=== PATIENT | male | born 1965 | race Caucasian/White ===

== ENCOUNTER → 2016-09-12 | Outpatient (CLI) | payer OTHER ==
[~2016-09-12] MED LIST: ATOR10TA66; LISI10TA2; OMEP20TA33 PO; PNT40TEC PO; SUCR1TAB23 PO
--- NOTE | 2016-09-12 14:27 | Diagnostic Imaging Report ---
CLINICAL INDICATION: Patient has trouble with back for a while now but picked up boxes today and now having extreme lower right-sided back pain. EXAM: X-ray of the lumbar spine, 3 views. COMPARISON: None. FINDINGS: There is no evidence of acute lumbar spine fracture or dislocation. There is incompletely imaged left curvature of the thoracolumbar spine. There are mildly hypertrophic degenerative spurs throughout the lumbar spine. There is moderate loss of intervertebral disc height at the L4-L5 level and L5-S1 level and mild to moderate loss of intervertebral disc height at the L3-L4 level. Sacroiliac joints and visualized portions sacrum and pelvis are unremarkable. IMPRESSION: There is lumbar spine degenerative disease including loss of intervertebral disc height at the L3-S1 levels. MRI of the lumbar spine would better evaluate for disc herniation. Dictated by: Dictated on workstation # [id number]
--- NOTE | 2016-09-12 15:29 | Diagnostic Imaging Report ---
Three views of the sacrum and coccyx. INDICATION: Low back pain. FINDINGS: There is minimal diastasis and step-off along the alignment between the coccyx and the sacrum which could be related to an age-indeterminate injury. No acute fractures seen. No radiopaque foreign body noted. The SI joints have normal alignment. IMPRESSION: There is minimal diastasis and posterior translation at the sacrococcygeal junction which could be related to an age-indeterminate injury. No fracture seen. Dictated by: Dictated on workstation # [id number]
== END ==
LOC: RAD 11:59
PROVIDERS: ATTEND Nurse Practitioner Family
DX: M54.5 Low back pain (principal)
CPT/HCPCS: 72100; 72220

== ENCOUNTER → 2016-09-17 | Outpatient (CLI) | payer OTHER ==
--- NOTE | 2016-09-17 11:38 | Diagnostic Imaging Report ---
PROCEDURE: MRI lumbar spine. TECHNIQUE: Multiplanar, multisequence MRI of the lumbar spine was performed without contrast. INDICATION: Back pain, right-sided pain There are no previous MRI examinations available for comparison. The plain film examination of the lumbar spine performed on 09/12/16 noted degenerative disc disease including narrowing of the disc space at L3-4, L4-5 and L5-S1. There is no acute abnormality identified. 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 Furthermore, the degenerative disc disease at L3-4, L4-5 and L5-S1 seen on the plain film exam is evident. The discs are narrowed and there is desiccation of the disc at each of these levels. In addition, at the L2-3 level there is a prominent disc protrusion eccentric to the right. The disc indents the right ventral aspect of the thecal sac and narrows the AP diameter to approximately 4.5 MM. There may also be encroachment of the exiting right nerve root at this level as well. There is mild narrowing of the neural foramen on the left at L2-3. There is also a disc bulge centrally at the L1-2 level. The disc indents the ventral aspect of the thecal sac and narrows the AP diameter to 8.8 MM. There is mild narrowing of the neural foramen bilaterally at this level. At the L3-4 level there is trefoil stenosis. The disc bulge centrally narrows the AP diameter to 7.6 mm and there is also mild neuroforaminal narrowing also. At the L4-5 level there is a disc protrusion to the left. The disc compresses the left ventral aspect of the thecal sac and narrows the AP diameter to 7.6 mm. Most likely there is encroachment of exiting left nerve root at this level as well. There is mild narrowing of the neural foramen on the right at this level. At L5-S1 there is a disc bulge eccentric to the left. The disc flattens the left ventral aspect of the thecal sac and narrows the AP diameter to 9.8 MM. There is mild narrowing of the neural foramen bilaterally at this level. There is no abnormal signal arising from the cord or the vertebral bodies to indicate an acute abnormality. There is no sign of a paraspinal mass. IMPRESSION: 1. There is degenerative disc, ligamentous and bony disease throughout the lumbar spine. The degenerative changes are accentuated by the relatively slender size of the thecal sac. The L2-3 levels is most significantly affected as there is a large disc protrusion to the right resulting in spinal stenosis and probable encroachment the exiting right nerve root at this level. 2. There is no acute bony abnormality or cord lesion identified. 3. These results were called to Zunilda Zepeda APRN at Dr. Kelly's office. Dictated by: Dictated on workstation # [id number]
== END ==
LOC: RAD 10:12
PROVIDERS: ATTEND Nurse Practitioner Family
DX: M51.36 Other intervertebral disc degeneration, lumbar region (principal)
CPT/HCPCS: 72148

== ENCOUNTER 2016-12-05 14:54 | Outpatient (RCR) | payer OTHER | END 2016-12-05 15:40 | disposition home or self-care (01) | PROVIDERS: ATTEND Orthopaedic Surgery Orthopaedic Surgery of the Spine | DX: Z47.89 Encounter for other orthopedic aftercare (principal) ==

== ENCOUNTER 2017-01-30 12:46 | Emergency (ER) | payer OTHER, BC ==
[~2017-01-30] VITALS: Ht 185.4 cm; Wt 102.1 kg
[2017-01-30] MEDS ORDERED: ATOR20TA49 PO (13:21)
[2017-01-30] MEDS ORDERED: AZIL80TA (13:21)
[2017-01-30] MEDS ORDERED: HYDR25TA4 (13:21)
--- NOTE | 2017-01-30 13:30 | ED General ---
General Chief Complaint: Laceration Stated Complaint: L POINTER FINGER LAC Nursing Triage Note: ARRIVED VIA POV TO ROOM 04 WITH COMPLAINTS OF LAC LEFT 2ND FINGER. 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 Sepsis Screen: No Definite Risk Source of Information: Patient Exam Limitations: No Limitations History of Present Illness Time Seen by Provider: 13:30 Allergies and Home Medications Allergies Coded Allergies: Penicillins (Unverified Allergy, Mild, 09/16/14) Home Medications Atorvastatin Calcium 20 Mg Tablet, 20 MG PO DAILY, (Reported) Azilsartan Medoxomil 80 Mg Tablet, #90 (Reported) Hydrochlorothiazide 25 Mg Tablet, #90 (Reported) Past Haxbjlt-Yjagrh-Oeuutr Hx Patient Social History Alcohol Use: Occasionally Uses Recreational Drug Use: No 2nd Hand Smoke Exposure: No Recent Foreign Travel: No Contact w/Someone Who Travel: No Recent Infectious Disease Expo: No Immunizations Up To Date Tetanus Booster (TDap): More than 5yrs Surgeries HX Surgeries: Yes Surgeries: Adenoidectomy, Tonsillectomy Respiratory Hx Respiratory Disorders: No Cardiovascular Hx Cardiac Disorders: Yes Cardiac Disorders: High Cholesterol, Hypertension Neurological Hx Neurological Disorders: No Genitourinary Hx Genitourinary Disorders: No Gastrointestinal Hx Gastrointestinal Disorders: Yes Gastrointestinal Disorders: Gastroesophageal Reflux Musculoskeletal Hx Musculoskeletal Disorders: No Endocrine Hx Endocrine Disorders: No Family Medical History Significant Family History: CAD Over 55 Years Old, Diabetes, Hypertension Physical Exam Vital Signs Vital Sign - Last 12Hours 01/30/17 13:14 Temp 98.0 Pulse 71 Resp 16 B/P (MAP) 126/83 Pulse Ox 97 Capillary Refill : Less Than 3 Seconds Laceration Repair : Wound Length (cm): 2 Wound's Depth, Shape: flap Suture: Ethlion Suture Size: 3-0 Number of Sutures: 4 Layer Closure?: 1 Progress/Results/Core Measures Results/Orders My Orders Orders - LAURY SEXTON Pertuss(Acell),Tet Adult (Boostrix (01/30/17 14:16) Lidocaine 2% Injection 20 Ml (Xylocaine (01/30/17 14:16) Bupivacaine 0.5% Injection (Sensorcaine (01/30/17 14:30) Vital Signs/I&O Vital Sign - Last 12Hours 01/30/17 13:14 Temp 98.0 Pulse 71 Resp 16 B/P (MAP) 126/83 Pulse Ox 97 Blood Pressure Mean: 97 Departure Impression Impression: Primary Impression: Finger laceration Disposition: 01 HOME, SELF-CARE Condition: Improved Departure-Patient Inst. Decision time for Depature: 15:35 Referrals: MARIA LUISA NEUMANN MD (PCP/Family) Primary Care Physician Patient Instructions: Laceration Repair With Stitches (DC) Add. Discharge Instructions: All discharge instructions reviewed with patient and/or family. Voiced understanding. Tylenol extra strength [id number] as directed for pain. Ibuprofen 800 mg by mouth every 8 hours as needed for pain. Elevate the left hand on pillows. Ice pack for 20 minute intervals as needed for pain. Tomorrow morning remove the bandage, shower with antibacterial soap, pat dry, apply triple antibiotic ointment twice daily for 3 days and cover with a bandage. The emergency department in 10-12 days for suture removal. Return immediately to the emergency department for worsened pain, redness, drainage, fever, or any other concerns. Follow up with family doctor if needed. LAURY SEXTON Jan 30, 2017 13:30
[2017-01-30] MEDS ORDERED: LIDOCAINE 2% 20 ML (XYLOCAINE) VIAL INJ STA (14:16)
[2017-01-30] MEDS ORDERED: TETANUS,DIPTH,PERTUSS P/F (BOOSTRIX) 0.5 ML VIAL IM STA (14:16)
[2017-01-30] MEDS ORDERED: BUPIVACAINE 0.5% 30 ML (SENSORCAINE) VIAL INJ ONE (14:30)
[2017-01-30 15:45] VITALS: BP 132/98
== END 2017-01-30 15:45 | disposition home or self-care (01) ==
LOC: EDUNIT# 12:46 → ER 12:48
DX: S61.211A Laceration without foreign body of left index finger without damage to nail, initial encounter (principal); I10 Essential (primary) hypertension; W26.0XXA Contact with knife, initial encounter; Y92.511 Restaurant or cafe as the place of occurrence of the external cause
CPT/HCPCS: 12001; 90715

== ENCOUNTER 2017-02-10 15:06 | Emergency (ER) | payer OTHER, BC ==
[~2017-02-10] VITALS: Ht 185.4 cm; Wt 102.1 kg
[~2017-02-10 15:06] MED LIST changes: +ATOR20TA49 PO; +AZIL80TA; +HYDR25TA4
[2017-02-10 15:25] VITALS: BP 119/77
== END 2017-02-10 15:25 | disposition home or self-care (01) ==
LOC: EDUNIT# 15:06 → ER 15:08
DX: S61.211D Laceration without foreign body of left index finger without damage to nail, subsequent encounter (principal); X58.XXXD Exposure to other specified factors, subsequent encounter

== ENCOUNTER → 2017-05-16 | Outpatient (CLI) | payer BC, OTHER ==
--- NOTE | 2017-05-16 10:43 | Diagnostic Imaging Report ---
PROCEDURE: MRI lumbar spine. TECHNIQUE: A multiplanar/multisequence MRI of the lumbar spine was performed without contrast. INDICATION: Back pain with right leg pain. FINDINGS: The alignment of the posterior spinal line is satisfactory. The vertebral body heights are preserved. There is disc desiccation and mild disc height loss at all levels in the lumbar spine. There is a relatively narrow AP dimension of the spinal canal on a congenital basis with the AP dimension of the canal at 9.4 mm at the mid L4 vertebral level. No significant congenital spinal canal stenosis, however. There is no significant marrow signal abnormality. Schmorl's nodes resulting in focal depressions of the upper endplate of the T12 and T11 vertebra are seen. The cauda equina and conus medullaris appear grossly unremarkable. T12-L1: Unremarkable. L1-2: There is a diffuse disc bulge with a superimposed central disc protrusion that has a cranial extension. There is mild facet hypertrophy. No central canal stenosis. The lateral recess demonstrates a mild to moderate stenosis bilaterally. The foramina demonstrate no significant stenosis on either side. L2-3: There is a diffuse disc bulge with an annular tear centrally and minimal cranial extension of the superimposed protrusion. There is mild facet hypertrophy. No central canal stenosis. This level demonstrates significant improvement compared to 09/17/2016 with a limited laminectomy suggested. Mild lateral recess stenosis is seen bilaterally. No significant foraminal stenosis. L3-4: There is a diffuse disc bulge and bilateral mild facet hypertrophy. There is a moderate central canal stenosis reducing the AP dimension of the canal to 7.7 mm and there is bilateral lateral recess stenosis, moderate on the right and mild to moderate on the left. The foramina demonstrate mild stenosis on the right side and minimal stenosis on the left. L4-5: There is a diffuse disc bulge asymmetric to the left side. There is central canal stenosis of a moderate degree reducing the AP dimension of the canal to 7.9 mm with severe stenosis of the left lateral recess compressing the descending left L5 nerve root. There is moderate to severe stenosis of the right lateral recess abutting the descending right L5 nerve root. The foramina demonstrate moderate stenosis on the right side and moderate to severe stenosis on the left. L5-S1: There is a left paracentral disc herniation with prominent posterior extension severely compressing the left lateral recess and the descending left S1 nerve root. The right lateral recess stenosis is mild. The central canal demonstrates minimal narrowing at 9.2 mm. There is mild foraminal stenosis bilaterally. This is worse compared to 09/17/2016. IMPRESSION: 1. Development of a prominent left paracentral and posterolateral disc protrusion severely compressing the left lateral recess at L5-S1. 2. Worsening of the left lateral recess stenosis and the overall spinal canal stenosis at L4-5. 3. Surgical decompression at the L2-L3 level with no significant canal stenosis remaining. Dictated by: Dictated on workstation # [id number]
== END ==
LOC: RAD 08:10
PROVIDERS: ATTEND Orthopaedic Surgery Orthopaedic Surgery of the Spine
DX: M51.16 Intervertebral disc disorders with radiculopathy, lumbar region (principal); M48.07 Spinal stenosis, lumbosacral region; Z98.890 Other specified postprocedural states
CPT/HCPCS: 72148

== ENCOUNTER 2017-09-14 11:04 | Emergency (ER) | payer OTHER, BC ==
[~2017-09-14] VITALS: Ht 185.4 cm; Wt 102.1 kg
--- OUTSIDE RECORDS SUMMARY | 2017-09-14 11:10 | XMS REPORT | Continuity of Care Document ---
Author Author [facility] Organization [facility] Address Unknown Phone Unavailable Allergies Active Description Code Type Severity Reaction Onset Reported/Identified Relationship to Patient Clinical Status Yes Penicillins [id number] Drug Allergy Mild N/A 09/16/2014 Medications There is no data. Problems Date Dx Coded Attending Type Code Diagnosis Diagnosed By 09/12/2014 JEFFREY BECERRIL DO Ot V72.84 09/16/2014 JEFFREY BECERRIL DO Ot 530.10 ESOPHAGITIS NOS 09/16/2014 JEFFREY BECERRIL DO Ot 535.50 UNSP GASTRITIS GASTRODUODENITIS W/O ME 09/16/2014 JEFFREY BECERRIL DO Ot V76.12 09/16/2014 JEFFREY BECERRIL DO Ot V76.51 SCREEN MAL NEOP-COLON 12/17/2014 JEFFREY BECERRIL DO Ot V72.84 08/04/2015 JEFFREY BECERRIL DO Ot V72.84 08/04/2015 GLENN HERRERA MD Ot F41.9 ANXIETY DISORDER, UNSPECIFIED 08/04/2015 GLENN HERRERA MD Ot H53.9 UNSPECIFIED VISUAL DISTURBANCE 08/04/2015 GLENN HERRERA MD Ot I10 ESSENTIAL (PRIMARY) HYPERTENSION 08/04/2015 GLENN HERRERA MD Ot I51.7 CARDIOMEGALY 08/04/2015 GLENN HERRERA MD Ot R11.2 NAUSEA WITH VOMITING, UNSPECIFIED 08/04/2015 GLENN HERRERA MD Ot R19.7 DIARRHEA, UNSPECIFIED 08/04/2015 GLENN HERRERA MD Ot R74.8 ABNORMAL LEVELS OF OTHER SERUM ENZYMES 09/15/2016 LUIS FELIPE GRAY APRN Ot M54.5 LOW BACK PAIN 09/19/2016 LUIS FELIPE GRAY APRN Ot M51.36 OTHER INTERVERTEBRAL DISC DEGENERATION, 09/21/2016 LUIS FELIPE GRAY APRN Ot M51.36 OTHER INTERVERTEBRAL DISC DEGENERATION, 09/23/2016 LUIS FELIPE GRAY DIGITAL MARKETING INTERN Ot M51.36 OTHER INTERVERTEBRAL DISC DEGENERATION, 09/27/2016 LUIS FELIPE GRAY DIGITAL MARKETING INTERN Ot M51.36 OTHER INTERVERTEBRAL DISC DEGENERATION, 10/13/2016 LUIS FELIPE GRAY D[employer] MARKETING INTERN Ot M54.5 LOW BACK PAIN 12/01/2016 ZIA HANKINS, STEPHEN Yang Ot Z47.89 ENCOUNTER FOR OTHER ORTHOPEDIC AFTERCARE 12/05/2016 ZIA HANKINS, STEPHEN Yang Ot Z47.89 ENCOUNTER FOR OTHER ORTHOPEDIC AFTERCARE 01/30/2017 LUIS FELIPE GRAY D[employer] MARKETING INTERN Ot M54.5 LOW BACK PAIN 01/30/2017 LUIS FELIPE GRAY D[employer] MARKETING INTERN Ot M51.36 OTHER INTERVERTEBRAL DISC DEGENERATION, 01/30/2017 JEFFREY BECERRIL DO Ot V72.84 EXAM PRE-OPERATIVE NOS 01/30/2017 LAURY VAZQUEZ Ot I10 ESSENTIAL (PRIMARY) HYPERTENSION 01/30/2017 LAURY VAZQUEZ Ot S61.211A LACERATION W/O FB OF L IDX FNGR W/O OPAL 01/30/2017 LAURY VAZQUEZ Ot W26.0XXA CONTACT WITH KNIFE, INITIAL ENCOUNTER 01/30/2017 LAURY VAZQUEZ Ot Y92.[address] 01/31/2017 JEFFREY BECERRIL DO Ot V72.84 EXAM PRE-OPERATIVE NOS 01/31/2017 LUIS FELIPE GRAY D[employer] MARKETING INTERN Ot M54.5 LOW BACK PAIN 01/31/2017 LUIS FELIPE GRAY APRN Ot M51.36 OTHER INTERVERTEBRAL DISC DEGENERATION, 02/03/2017 LAURY VAZQUEZ Ot I10 ESSENTIAL (PRIMARY) HYPERTENSION 02/03/2017 LAURY VAZQUEZ Ot S61.211A LACERATION W/O FB OF L IDX FNGR W/O OPAL 02/03/2017 LAURY VAZQUEZ Ot W26.0XXA CONTACT WITH KNIFE, INITIAL ENCOUNTER 02/03/2017 LAURY VAZQUEZ Ot Y92.[address] 02/08/2017 LAURY VAZQUEZ Ot I10 ESSENTIAL (PRIMARY) HYPERTENSION 02/08/2017 LAURY VAZQUEZ Ot S61.211A LACERATION W/O FB OF L IDX FNGR W/O OPAL 02/08/2017 DARSHAN KHAN LAURY Brandan Ot W26.0XXA CONTACT WITH KNIFE, INITIAL ENCOUNTER 02/08/2017 DARSHAN KHAN LAURY Brandan Ot Y92.[address] 02/09/2017 DARSHAN KHAN LAURY Brandan Ot I10 ESSENTIAL (PRIMARY) HYPERTENSION 02/09/2017 DARSHAN KHAN LAURY Brandan Ot S61.211A LACERATION W/O FB OF L IDX FNGR W/O OPAL 02/09/2017 DARSHAN KHAN LAURY L Ot W26.0XXA CONTACT WITH KNIFE, INITIAL ENCOUNTER 02/09/2017 DARSHAN KHAN LAURY L Ot Y92.[address] 02/10/2017 YVETTE BURRELL MD Ot S61.211D LACERATION W/O FB OF L IDX FNGR W/O OPAL 02/10/2017 YVETTE BURRELL MD Ot X58.XXXD EXPOSURE TO OTHER SPECIFIED FACTORS, SUB 02/13/2017 YVETTE BURRELL MD Ot S61.211D LACERATION W/O FB OF L IDX FNGR W/O OPAL 02/13/2017 YVETTE BURRELL MD Ot X58.XXXD EXPOSURE TO OTHER SPECIFIED FACTORS, SUB 05/15/2017 LUIS FELIPE GRAY APRN Ot M54.5 LOW BACK PAIN 05/15/2017 LUIS FELIPE GRAY APRN Ot M51.36 OTHER INTERVERTEBRAL DISC DEGENERATION, 05/31/2017 STEPHEN LIZARRAGA MD Ot M48.07 SPINAL STENOSIS, LUMBOSACRAL REGION 05/31/2017 STEPHEN LIZARRAGA MD Ot M51.16 INTERVERTEBRAL DISC DISORDERS W RADICULO 05/31/2017 STEPHEN LIZARRAGA MD Ot Z98.890 OTHER SPECIFIED POSTPROCEDURAL STATES Procedures There is no data. Results There is no data. Encounters ACCT No. Visit Date/Time Discharge Status Pt. Type Provider Facility Loc./Unit Complaint [id number] 05/16/2017 08:10:00 05/16/2017 23:59:59 [facility] Outpatient STEPHEN LIZARRAGA MD [facility] RAD M54.5 [id number] 02/10/2017 15:08:00 02/10/2017 15:25:00 DIS Emergency INDRA HANKINS, YVETTE S [facility] ER SUTURE REMOVAL [id number] 01/30/2017 12:48:00 01/30/2017 15:45:00 DIS Emergency LAURY VAZQUEZ [facility] ER L POINTER FINGER LAC [id number] 12/05/2016 14:54:00 12/05/2016 15:40:00 DIS Outpatient ZIA HANKINS, STEPHEN Yang [facility] REHAB LUMBAR MICRODISECTOMY [id number] 09/17/2016 10:12:00 09/17/2016 23:59:59 CLS Outpatient LUIS FELIPE GRAY APRN [facility] RAD LOW BACK PAIN, LUMBAR SPINE DEGENERATIVE [id number] 09/12/2016 11:59:00 09/12/2016 23:59:59 CLS Outpatient LUIS FELIPE GRAY APRN [facility] RAD LOW BACK PAIN [id number] 08/04/2015 06:12:00 08/04/2015 08:22:00 DIS Emergency JAVIER HANKINS, GLENN Orta [facility] ER TUNNEL VISION,DIARRHEA ,DRY HEAVES,SHAKING [id number] 09/16/2014 12:54:00 09/16/2014 15:40:00 DIS Outpatient JEFFREY BECERRIL DO [facility] SDC SCREENING/REFLUX [id number] 09/11/2014 06:20:00 09/11/2014 23:59:59 CLS Outpatient JEFFREY BECERRIL DO [facility] PREOP SCREENING/FEFLUX
--- NOTE | 2017-09-14 14:27 | ED Upper Extremity ---
General Chief Complaint: Laceration Stated Complaint: LACERATION R THUMB Nursing Triage Note: PT. 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 BRENNAN ANDINO IN TO LOOK AT WOUND. THIS RN CLEANED AREA THEN BRENNAN USED GLUE TO THUMB. PT. W/NO OTHER C/O AT THIS TIME. 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 Tetanus updated last month. Onset: just prior to arrival Severity: moderate Pain/Injury Location: right thumb Modifying Factors: Worse With Movement Allergies and Home Medications Allergies Coded Allergies: Penicillins (Unverified Allergy, Mild, 09/16/14) Home Medications Atorvastatin Calcium 20 Mg Tablet, 20 MG PO DAILY, (Reported) Azilsartan Medoxomil 80 Mg Tablet, #90 (Reported) Hydrochlorothiazide 25 Mg Tablet, #90 (Reported) Constitutional: see HPI EENTM: see HPI Respiratory: no symptoms reported Cardiovascular: no symptoms reported Genitourinary: no symptoms reported Musculoskeletal: no symptoms reported Skin: see HPI Psychiatric/Neurological: No Symptoms Reported Past Vnbtyzl-Jscjse-Pccipm Hx Patient Social History Alcohol Use: Occasionally Uses Recreational Drug Use: No Smoking Status: Never a Smoker 2nd Hand Smoke Exposure: No Recent Foreign Travel: No Contact w/Someone Who Travel: No Recent Infectious Disease Expo: No Physical Abuse: No Sexual Abuse: No Immunizations Up To Date Tetanus Booster (TDap): More than 5yrs Date of Influenza Vaccine: Jul 28, 2017 Surgeries History of Surgeries: Yes (BACK) Surgeries: Adenoidectomy, Tonsillectomy Respiratory History of Respiratory Disorde: No Cardiovascular History of Cardiac Disorders: Yes Cardiac Disorders: High Cholesterol, Hypertension Neurological History of Neurological Disord: No Gastrointestinal History of Gastrointestinal Di: Yes Gastrointestinal Disorders: Gastroesophageal Reflux Musculoskeletal History of Musculoskeletal Dis: No Endocrine History of Endocrine Disorders: No Cancer History of Cancer: No Psychosocial History of Psychiatric Problem: No Suicide Risk Score: 0 Integumentary History of Skin or Integumenta: No Family Medical History Significant Family History: CAD Over 55 Years Old, Diabetes, Hypertension Physical Exam Vital Signs Vital Sign - Last 12Hours 09/14/17 14:17 Temp 98.2 Pulse 66 Resp 18 B/P (MAP) 134/80 (98) Pulse Ox 97 O2 Delivery Room Air Capillary Refill : Less Than 3 Seconds General Appearance: WD/WN, no apparent distress HEENT: PERRL/EOMI, normal ENT inspection Neck: non-tender, full range of motion Respiratory: normal breath sounds, no respiratory distress, no accessory muscle use Elbow/Forearm: normal inspection, non-tender Wrist: Yes normal inspection, Yes non-tender Hand: normal inspection, non-tender, Right, laceration (skin avulsion to the tip of the right thumb closed with Dermabond) Neurologic/Tendon: normal sensation, normal motor functions, normal tendon functions Neurologic/Psychiatric: alert, normal mood/affect, oriented x 3 Skin: normal color, warm/dry Laceration Repair : Suture Size: 3-0 Other Closure Supply: Wound Adhesive Progress/Results/Core Measures Results/Orders Vital Signs/I&O Vital Sign - Last 12Hours 09/14/17 14:17 Temp 98.2 Pulse 66 Resp 18 B/P (MAP) 134/80 (98) Pulse Ox 97 O2 Delivery Room Air Blood Pressure Mean: 98 Departure Impression Impression: Primary Impression: Skin avulsion Disposition: 01 HOME, SELF-CARE Condition: Stable Departure-Patient Inst. Decision time for Depature: 14:26 Referrals: MARIA LUISA NEUMANN MD (PCP/Family) Primary Care Physician Patient Instructions: SKIN AVULSION Add. Discharge Instructions: All discharge instructions reviewed with patient and/or family. Voiced understanding. BRENNAN ANDINO APRN Sep 14, 2017 14:27
[2017-09-14 14:30] VITALS: BP 134/80
== END 2017-09-14 14:30 | disposition home or self-care (01) ==
LOC: EDUNIT# 11:04 → ER 11:06
DX: S61.011A Laceration without foreign body of right thumb without damage to nail, initial encounter (principal); E78.00 Pure hypercholesterolemia, unspecified; I10 Essential (primary) hypertension; K21.9 Gastro-esophageal reflux disease without esophagitis; Z90.89 Acquired absence of other organs; W26.0XXA Contact with knife, initial encounter; Y92.59 Other trade areas as the place of occurrence of the external cause; Y99.0 Civilian activity done for income or pay

== ENCOUNTER → 2020-10-31 | Outpatient (CLI) | payer BC, OTHER ==
[~2020-10-31] MED LIST changes: -LISI10TA2; +LISI10TA25
[2020-10-31 08:52] LABS: BASOPHILS # (AUTO) 0.1 10^3/uL (0.0-0.1); BASOPHILS % (AUTO) 1 % (0-10); EOSINOPHILS # (AUTO) 0.1 10^3/uL (0.0-0.3); EOSINOPHILS % (AUTO) 1 % (0-10); HEMATOCRIT 43 % (40-54); HEMOGLOBIN 14.3 g/dL (13.3-17.7); LYMPHOCYTES # (AUTO) 1.9 10^3/uL (1.0-4.0); LYMPHOCYTES % (AUTO) 35 % (12-44); MEAN CORPUSCULAR HEMOGLOBIN 29 pg (25-34); MEAN CORPUSCULAR HGB CONC 34 g/dL (32-36); MEAN CORPUSCULAR VOLUME 85 fL (80-99); MEAN PLATELET VOLUME 9.8 fL (9.0-12.2); MONOCYTES # (AUTO) 0.6 10^3/uL (0.0-1.0); MONOCYTES % (AUTO) 10 % (0-12); NEUTROPHILS # (AUTO) 2.9 10^3/uL (1.8-7.8); NEUTROPHILS % (AUTO) 52 % (42-75); PLATELET COUNT 252 10^3/uL (130-400); WHITE BLOOD COUNT 5.5 10^3/uL (4.3-11.0)
[2020-10-31 09:11] LABS: ALANINE AMINOTRANSFERASE 39 U/L (0-55); ALBUMIN 4.2 GM/DL (3.2-4.5); ALKALINE PHOSPHATASE 61 U/L (40-136); BILIRUBIN,TOTAL 0.5 MG/DL (0.1-1.0); BUN/CREATININE RATIO 16; CALCIUM 8.8 MG/DL (8.5-10.1); CARBON DIOXIDE 22 MMOL/L (21-32); CHLORIDE 106 MMOL/L (98-107); CHOLESTEROL 168 MG/DL (< 200); CREATININE SERUM 0.89 MG/DL (0.60-1.30); GFR ESTIMATED > 60; GLUCOSE 103 MG/DL (70-105); HDL CHOLESTEROL 55 MG/DL (40-60); POTASSIUM 3.6 MMOL/L (3.6-5.0); SODIUM 139 MMOL/L (135-145); TOTAL PROTEIN 6.8 GM/DL (6.4-8.2); TRIGLYCERIDES 89 MG/DL (<150); VLDL CHOLESTEROL 18 MG/DL (5-40)
== END ==
LOC: LAB 08:36
PROVIDERS: ATTEND Internal Medicine
DX: Z00.00 Encounter for general adult medical examination without abnormal findings (principal); E78.00 Pure hypercholesterolemia, unspecified; E78.1 Pure hyperglyceridemia; R73.9 Hyperglycemia, unspecified
CPT/HCPCS: 36415; 80053; 80061; 83036; 84443; 85025

== ENCOUNTER → 2021-04-30 | Outpatient (CLI) | payer OTHER ==
[2021-04-30 09:38] LABS: ALBUMIN 4.2 GM/DL (3.2-4.5); BILIRUBIN,TOTAL 0.6 MG/DL (0.1-1.0); CALCIUM 9.4 MG/DL (8.5-10.1); CREATININE SERUM 0.83 MG/DL (0.60-1.30); POTASSIUM 3.5 MMOL/L (3.6-5.0); TOTAL PROTEIN 6.7 GM/DL (6.4-8.2)
== END ==
LOC: LAB 08:52
PROVIDERS: ATTEND Internal Medicine
DX: E78.1 Pure hyperglyceridemia (principal); E78.00 Pure hypercholesterolemia, unspecified; I10 Essential (primary) hypertension; R73.9 Hyperglycemia, unspecified
CPT/HCPCS: 36415; 80053; 82465; 83036; 84478

== ENCOUNTER → 2021-11-02 | Outpatient (CLI) | payer OTHER ==
[2021-11-02 07:39] LABS: BASOPHILS # (AUTO) 0.1 10^3/uL (0.0-0.1); BASOPHILS % (AUTO) 1 % (0-10); EOSINOPHILS # (AUTO) 0.1 10^3/uL (0.0-0.3); EOSINOPHILS % (AUTO) 1 % (0-10); HEMATOCRIT 42 % (40-54); HEMOGLOBIN 14.4 g/dL (13.3-17.7); LYMPHOCYTES # (AUTO) 2.1 10^3/uL (1.0-4.0); LYMPHOCYTES % (AUTO) 33 % (12-44); MEAN CORPUSCULAR HEMOGLOBIN 29 pg (25-34); MEAN CORPUSCULAR HGB CONC 34 g/dL (32-36); MEAN CORPUSCULAR VOLUME 85 fL (80-99); MEAN PLATELET VOLUME 9.7 fL (9.0-12.2); MONOCYTES # (AUTO) 0.8 10^3/uL (0.0-1.0); MONOCYTES % (AUTO) 12 % (0-12); NEUTROPHILS # (AUTO) 3.4 10^3/uL (1.8-7.8); NEUTROPHILS % (AUTO) 53 % (42-75); PLATELET COUNT 252 10^3/uL (130-400); WHITE BLOOD COUNT 6.4 10^3/uL (4.3-11.0)
[2021-11-02 08:16] LABS: ALBUMIN 4.2 GM/DL (3.2-4.5); BILIRUBIN,TOTAL 0.8 MG/DL (0.1-1.0); CALCIUM 9.2 MG/DL (8.5-10.1); CREATININE SERUM 0.86 MG/DL (0.60-1.30); POTASSIUM 3.5 MMOL/L (3.6-5.0); TOTAL PROTEIN 6.9 GM/DL (6.4-8.2)
== END ==
LOC: LAB 07:15
PROVIDERS: ATTEND Internal Medicine
DX: Z00.00 Encounter for general adult medical examination without abnormal findings (principal); E78.00 Pure hypercholesterolemia, unspecified; E78.1 Pure hyperglyceridemia; R73.9 Hyperglycemia, unspecified
CPT/HCPCS: 36415; 80053; 80061; 83036; 84443; 85025

== ENCOUNTER → 2022-06-07 | Outpatient (CLI) | payer OTHER ==
[2022-06-07 08:20] LABS: ALBUMIN 4.3 GM/DL (3.2-4.5); BILIRUBIN,TOTAL 0.6 MG/DL (0.1-1.0); CALCIUM 9.6 MG/DL (8.5-10.1); CREATININE SERUM 0.93 MG/DL (0.60-1.30); POTASSIUM 3.4 MMOL/L (3.6-5.0)
== END ==
LOC: LAB 07:37
PROVIDERS: ATTEND Internal Medicine
DX: I10 Essential (primary) hypertension (principal); E78.00 Pure hypercholesterolemia, unspecified; E78.1 Pure hyperglyceridemia; R73.9 Hyperglycemia, unspecified; R97.20 Elevated prostate specific antigen [PSA]
CPT/HCPCS: 36415; 80053; 82465; 83036; 84153; 84478

== ENCOUNTER → 2022-12-05 | Outpatient (CLI) | payer OTHER ==
[2022-12-05 08:24] LABS: BASOPHILS # (AUTO) 0.1 10^3/uL (0.0-0.1); BASOPHILS % (AUTO) 1 % (0-10); EOSINOPHILS # (AUTO) 0.1 10^3/uL (0.0-0.3); EOSINOPHILS % (AUTO) 1 % (0-10); HEMATOCRIT 41 % (40-54); HEMOGLOBIN 13.9 g/dL (13.3-17.7); LYMPHOCYTES # (AUTO) 2.1 10^3/uL (1.0-4.0); LYMPHOCYTES % (AUTO) 35 % (12-44); MEAN CORPUSCULAR HEMOGLOBIN 29 pg (25-34); MEAN CORPUSCULAR HGB CONC 34 g/dL (32-36); MEAN CORPUSCULAR VOLUME 84 fL (80-99); MEAN PLATELET VOLUME 9.4 fL (9.0-12.2); MONOCYTES # (AUTO) 0.7 10^3/uL (0.0-1.0); MONOCYTES % (AUTO) 11 % (0-12); NEUTROPHILS # (AUTO) 3.1 10^3/uL (1.8-7.8); NEUTROPHILS % (AUTO) 51 % (42-75); PLATELET COUNT 249 10^3/uL (130-400)
[2022-12-05 08:32] LABS: POTASSIUM 3.3 MMOL/L (3.6-5.0)
[2022-12-05 08:33] LABS: ALBUMIN 4.2 GM/DL (3.2-4.5)
[2022-12-05 08:35] LABS: TOTAL PROTEIN 6.7 GM/DL (6.4-8.2)
[2022-12-05 08:37] LABS: BILIRUBIN,TOTAL 0.5 MG/DL (0.1-1.0)
[2022-12-05 08:39] LABS: CREATININE SERUM 0.86 MG/DL (0.60-1.30)
== END ==
LOC: LAB 08:03
PROVIDERS: ATTEND Internal Medicine
DX: Z00.00 Encounter for general adult medical examination without abnormal findings (principal); E78.00 Pure hypercholesterolemia, unspecified; E78.1 Pure hyperglyceridemia
CPT/HCPCS: 36415; 80053; 80061; 83036; 84443; 85025

== ENCOUNTER → 2023-06-13 | Outpatient (CLI) | payer OTHER ==
[2023-06-13 08:04] LABS: ALBUMIN 4.4 GM/DL (3.2-4.5); POTASSIUM 3.3 MMOL/L (3.6-5.0)
[2023-06-13 08:06] LABS: CALCIUM 9.3 MG/DL (8.5-10.1)
[2023-06-13 08:09] LABS: BILIRUBIN,TOTAL 0.8 MG/DL (0.1-1.0)
[2023-06-13 08:11] LABS: CREATININE SERUM 0.89 MG/DL (0.60-1.30)
== END ==
LOC: LAB 07:32
PROVIDERS: ATTEND Internal Medicine
DX: Z00.00 Encounter for general adult medical examination without abnormal findings (principal); E78.00 Pure hypercholesterolemia, unspecified; E78.1 Pure hyperglyceridemia; R73.9 Hyperglycemia, unspecified
CPT/HCPCS: 36415; 80053; 82465; 83036; 84478

== ENCOUNTER → 2023-06-16 | Outpatient (CLI) | payer OTHER ==
--- NOTE | 2023-06-16 15:16 | Diagnostic Imaging Report ---
EXAMINATION: Left wrist 3 or more views HISTORY: Wrist pain COMPARISON: None available. FINDINGS: Alignment is normal. No fracture is seen. Joint spaces are normal. IMPRESSION: 1. No fracture. Dictated by: Dictated on workstation # [id number]
--- NOTE | 2023-06-16 15:17 | Diagnostic Imaging Report ---
EXAMINATION: Left hand 3 views HISTORY: Hand pain COMPARISON: None available. FINDINGS: Alignment is normal. No fracture is seen. Joint spaces are normal. IMPRESSION: 1. No fracture. Dictated by: Dictated on workstation # [id number]
== END ==
LOC: RAD 08:15
PROVIDERS: ATTEND Internal Medicine
DX: M25.532 Pain in left wrist (principal); M79.642 Pain in left hand
CPT/HCPCS: 73110; 73130